=== PATIENT | female | born 1955 | race Caucasian/White ===

== ENCOUNTER 2022-12-11 15:48 | Emergency (ER) | payer MEDICARE, SELFPAY ==
--- NOTE | 2022-12-11 19:53 | PC.NURSE ---
12/11/22 SEE DOWNTIME DOCUMENTATION. DANNY POPE RN
== END 2022-12-11 16:40 | disposition short-term general hospital (02) ==
LOC: EXPBETH 19:08
PROVIDERS: Emergency Provider Nurse Practitioner Family
DX: S00.83XA Contusion of other part of head, initial encounter (principal); W19.XXXA Unspecified fall, initial encounter
CPT/HCPCS: 99212; G0463